=== PATIENT | female | born 1985 | race Caucasian/White ===

== ENCOUNTER 2016-06-17 20:24 | Emergency (ER) | payer OTHER ==
[2016-06-17 21:17] VITALS: BP 143/85
== END 2016-06-17 21:17 | disposition home or self-care (01) ==
LOC: ED 20:24
DX: L73.9 Follicular disorder, unspecified (principal)

== ENCOUNTER 2018-09-15 16:49 | Emergency (ER) | payer OTHER ==
[~2018-09-15] VITALS: Ht 170.2 cm; Wt 78.0 kg
[2018-09-15 16:55] VITALS: Ht 170.2 cm; Wt 78.0 kg
[2018-09-15 18:59] VITALS: BP 131/79
== END 2018-09-15 18:59 | disposition home or self-care (01) ==
LOC: ED 16:49
DX: M54.5 Low back pain (principal); Z98.890 Other specified postprocedural states
CPT/HCPCS: J1885; J3010; J7512; Q0162

== ENCOUNTER 2019-02-01 19:11 | Emergency (ER) | payer OTHER ==
[~2019-02-01] VITALS: Ht 167.6 cm; Wt 81.2 kg
[2019-02-01 21:49] VITALS: Ht 167.6 cm; Wt 81.2 kg
[2019-02-02 01:34] VITALS: BP 134/76
== END 2019-02-02 01:34 | disposition home or self-care (01) ==
LOC: ED 19:11
DX: M54.5 Low back pain (principal); Z98.890 Other specified postprocedural states
CPT/HCPCS: J1885; J3010; J7512; Q0162